=== PATIENT | female | born 1955 | race Caucasian/White ===

== ENCOUNTER → 2017-05-23 | Outpatient (CLI) | payer BC ==
[~2017-05-23] MED LIST: ACET-1138 PO; ASPEC325 PO; CONJ.6255 PO; ESOM20CA PO; FRRG PO; LEVO112T2 PO; OMEG10007 PO; RXC5 PO; SENN8.6T36 PO
--- NOTE | 2017-05-23 16:08 | MAMMOGRAPHY REPORT ---
BILATERAL DIGITAL SCREENING MAMMOGRAM TOMOSYNTHESIS WITH CAD: 05/23/2017 CLINICAL HISTORY: Routine screening. Patient has no complaints. TECHNIQUE: Breast tomosynthesis in addition to standard 2D mammography was performed. Current study was also evaluated with a Computer Aided Detection (CAD) system. COMPARISON: Comparison is made to exams dated: 01/27/2015 mammogram, 01/21/2014 mammogram, 01/21/2014 ma mmogram, 01/15/2013 mammogram, 01/17/2012 mammogram, and 01/10/2012 mammogram - [facility]. BREAST COMPOSITION: The tissue of both breasts is heterogeneously dense, which may obscure small mas ses. FINDINGS: No suspicious masses, calcifications, or areas of architectural distortion are noted in ei ther breast. There has been no significant interval change compared to prior exams. A biopsy marker clip is again noted in the left superior breast. IMPRESSION: ACR BI-RADS CATEGORY 2: BENIGN There is no mammographic evidence of malignancy. A 1 year screening mammogram is recommended. The pa tient will receive written notification of the results. Approximately 10% of breast cancers are not detected with mammography. A negative mammographic report should not delay biopsy if a clinically suggestive mass is present. Sarahi Rao M.D. /:05/23/2017 15:20:27 Grill Prep Cook: Nidia WALTON)(Estela)(BD), [facility] letter sent: Normal 1/2 BI-RADS Code: ACR BI-RADS Category 2: Benign
== END | disposition home or self-care (01) ==
LOC: C.MAMM 09:29
PROVIDERS: ATTEND Obstetrics & Gynecology
DX: Z12.31 Encounter for screening mammogram for malignant neoplasm of breast (principal)

== ENCOUNTER → 2017-06-12 | Outpatient (CLI) | payer BC | END | disposition home or self-care (01) | LOC: C.PAPS 15:10 | PROVIDERS: ATTEND Obstetrics & Gynecology | DX: Z01.419 Encounter for gynecological examination (general) (routine) without abnormal findings (principal) ==

== ENCOUNTER → 2017-09-12 | Outpatient (CLI) | payer BC ==
[2017-09-12 10:01] LABS: GLUCOSE,FASTING 95 mg/dl (70-99)
[2017-09-12 10:12] LABS: CHOLESTEROL 182 mg/dl (0-200); CHOLESTEROL/HDL RATIO 3.1; HDL CHOLESTEROL 58 mg/dl; TRIGLYCERIDES 140 mg/dl (0-150); VERY LOW DENSITY LIPOPROT CALC 28 mg/dl
== END | disposition home or self-care (01) ==
LOC: C.LAB 06:36
PROVIDERS: ATTEND Obstetrics & Gynecology
DX: Z00.00 Encounter for general adult medical examination without abnormal findings (principal)

== ENCOUNTER → 2017-10-04 | Outpatient (CLI) | payer BC | END | disposition home or self-care (01) | LOC: C.LAB 16:23 | PROVIDERS: ATTEND Obstetrics & Gynecology | DX: E03.9 Hypothyroidism, unspecified (principal); N95.0 Postmenopausal bleeding; R00.2 Palpitations ==

== ENCOUNTER → 2017-10-11 | Outpatient (CLI) | payer BC ==
[2017-10-11 13:20] LABS: BASO % 0.6 %; BASO ABS # 0.04 K/uL (0-0.2); COMPLETE YES; EOS % 1.9 %; HEMATOCRIT 39.6 % (37-47); IG% 0.1 %; LYMPH % 41.9 %; LYMPH ABS # 3.01 K/uL (1.2-3.4); MEAN CELL VOLUME 92.7 fL (80-100); MEAN CORPUSCULAR HEMOGLOBIN 30.2 pg (25-34); MEAN CORPUSCULAR HGB CONC 32.6 g/dl (32-36); MEAN PLATELET VOLUME 9.8 fL (7.4-10.4); MONO % 5.4 %; NEUT % 50.1 %; PLATELET COUNT 310 K/uL (130-400); RED BLOOD COUNT 4.27 M/uL (4.2-5.4); WHITE BLOOD COUNT 7.19 K/uL (4.8-10.8)
[2017-10-11 13:54] LABS: ESTIMATED AVERAGE GLUCOSE 117 mg/dl; HA1C FLAG Normal (Normal)
== END | disposition home or self-care (01) ==
LOC: C.LAB 12:08
PROVIDERS: ATTEND Obstetrics & Gynecology
DX: Z01.812 Encounter for preprocedural laboratory examination (principal); N95.0 Postmenopausal bleeding; R00.2 Palpitations; R73.03 Prediabetes

== ENCOUNTER 2019-03-28 06:25 | Inpatient (IN) ==
--- NOTE | 2019-03-06 16:09 | PAT Medication Instructions ---
Medication Instructions Date of Service March 06, 2019 Home Medications Plexus 1 pkg PO QAM esomeprazole magnesium 20 mg PO QAM ibuprofen 800 mg PO TID PRN levothyroxine 112 mcg PO QAM multivitamin 1 cap PO QAM omega 3-jaj-ayd-fish oil [Fish Oil] 1 cap PO QAM ASK your surgeon for instructions ibuprofen 800 mg PO TID PRN STOP taking 2 weeks before surgery (or as soon as possible if surgery is within 2 weeks) Plexus 1 pkg PO QAM omega 5-ssk-vwz-fish oil [Fish Oil] 1 cap PO QAM DO NOT take the morning of surgery multivitamin 1 cap PO QAM Take morning of surgery With a small sip of water, OTHERWISE NOTHING TO EAT OR DRINK AFTER MIDNIGHT: esomeprazole magnesium 20 mg PO QAM levothyroxine 112 mcg PO QAM Other Notes If you have any questions please call us at [phone] or [phone] or [phone] or [phone]
--- NOTE | 2019-03-07 10:43 | Anesthesiology Consultation ---
Date of Service March 07, 2019 Assessment & Plan (1) Encounter for pre-operative examination: - Right TKA= 10/16/16= SAB x1 at L3-L4; still able to feel knee manipulation --> LMA#4 (done under GA). Patient requests GA-- Discussed SAB vs. GA; advised patient that this will be discussed further AM DOS. Chart Review Chart Review: Acceptable Risk for Surgery and Patient seen in Pre Admission Testing Teaching & Discussion Pre-Anesthesia Teaching/Discussion Notes: Instructed NPO after midnight before surgery,except medications with 15 cc of water. Medication instructions provided according to the PAT guidelines. History Surgery Operation Date: 03/28/19 08:50 Proposed Procedures p Left Total Knee Replacement - Noah Longo MD Height/Weight Height: 5 ft 1 in Weight: 90.1 kg Allergies Allergy/AdvReac Type Severity Reaction Status Date / Time No Known Allergies Allergy Unknown Verified 03/05/19 07:44 Medications Home Medications Medication Instructions Recorded Confirmed Last Taken Plexus 1 pkg PO QAM 03/05/19 Unknown esomeprazole magnesium 20 mg PO QAM 03/05/19 03/05/19 Unknown ibuprofen 800 mg PO TID PRN 03/05/19 03/05/19 Unknown levothyroxine 112 mcg PO QAM 03/05/19 03/05/19 Unknown multivitamin 1 cap PO QAM 03/05/19 03/05/19 Unknown omega 8-ahe-fnh-fish oil [Fish Oil] 1 cap PO QAM 03/05/19 03/05/19 Unknown Past Medical History Medical History GERD (gastroesophageal reflux disease) CONTROLLED Hypothyroidism Obesity Osteoarthritis Past Surgical History Surgical History History of bilateral tubal ligation History of colonoscopy History of dilatation and curettage MULTIPLE History of laminectomy LUMBAR History of total knee replacement RIGHT KNEE TKA Past Anesthesia History No Family Hx of Anesthesia Complications and Other RIGHT KNEE TKA= 10/16/16= SAB X1 AT L3-L4; STILL ABLE TO FEEL KNEE MANIPULATION --> LMA#4 (DONE UNDER GA) History of PONV No Motion Sickness Screening History of Motion Sickness: Yes Social History Smoking Status: Former smoker Do You Dip or Chew Tobacco: No Smoking End Date: QUIT 2012; HX 1/2 PPD X 15 YEARS Hx Alcohol Use: No Hx Substance Use: No substance use type: does not use Exercise / Class Metabolic Activity II 4-5 Yardwork/Stairs/Walk up hill Review of Systems Patient denies chest pain, shortness of breath, dyspnea on exertion, cough, wheezing, palpitations. Physical Exam Vital Signs VITALS BP 131/84 P 70 TEMP 97.8 SP02 95%RA RESP 16 PHYSICAL Full neck and c-spine range of motion. Full TMJ range of motion. TMD 3 finger breaths Mallampati Score 1 Dentition: intact, crowns on sides/molars Lungs: clear throughout to auscultation Cardiac: regular rate and rhythm, no murmurs noted Spine: normal Carotid arteries: negative bruit Extremities: no edema Testing Electrocardiogram Date: 03/07/19 Findings: + NSR @ (71) Chest X-Ray Date: 03/07/19 Findings: + NAD Laboratory Results 03/07/19 11:11 03/07/19 11:11 Blood Type O Positive 03/07/19 11:11 Antibody Screen NEGATIVE 03/07/19 11:11 PT 9.8 Seconds (9.0-12.0) 03/07/19 11:11 INR 1.0 (0.9-1.1) 03/07/19 11:11 APTT 24.1 Seconds (21.0-31.0) 03/07/19 11:11
--- NOTE | 2019-03-07 12:10 | XRay Report ---
XR chest Pre-admission PA/Lat HISTORY: 63 years-old Female pat preoperative exam. No acute chest complaints COMPARISON: Chest radiographs 10/09/2016 TECHNIQUE: PA and lateral views of the chest FINDINGS: Cardiomediastinal and hilar silhouettes are within normal limits. No pneumothorax, pleural effusion, focal airspace consolidation or overt pulmonary edema. Bones of the chest appear grossly intact. IMPRESSION: No acute process. The above report was generated using voice recognition software. It may contain grammatical, syntax o r spelling errors. Electronically signed by: Govind Emerson M.D. 03/07/2019 12:09 PM
[2019-03-07 12:14] LABS: Basophils # (auto) 0.06 K/uL (0-0.2); Eosinophils # (auto) 0.12 K/uL (0-0.5); Eosinophils % (auto) 2.1 %; Hematocrit (blood only) 38.3 % (37-47); Hemoglobin 12.9 g/dL (12.0-16.0); Immature Granulocytes # (auto) 0.01 K/uL (0.00-0.02); Immature Granulocytes % (auto) 0.2 %; Lymphocytes # (auto) 2.28 K/uL (1.2-3.4); Lymphocytes % (auto) 39.4 %; Mean Corpuscular Hgb Conc 33.7 g/dL (32-36); Mean Corpuscular Volume 89.9 fL (80-100); Mean Platelet Volume 9.6 fL (7.4-10.4); Monocytes # (auto) 0.35 K/uL (0.11-0.59); Neutrophils # (auto) 2.97 K/uL (1.4-6.5); Neutrophils % (auto) 51.3 %; Platelet Count 292 K/uL (130-400); RDW Coefficient of Variation 13.3 % (11.5-14.5); RDW Standard Deviation 43.9 fL (36.4-46.3); Red Blood Count 4.26 M/uL (4.2-5.4); White Blood Count 5.79 K/uL (4.8-10.8)
[2019-03-07 12:26] LABS: BUN Creatinine Ratio 14.5 (10-20); C Reactive Protein 0.83 mg/dl (0-0.29); Calcium 9.3 mg/dl (8.5-10.1); Creatinine Clr Calc Pharmacy 72.7 ml/min; Est GFR (African American) 88.9; Est GFR (Non-African American) 76.7; Partial Thromboplastin Ratio 0.9; Partial Thromboplastin Time 24.1 Seconds (21.0-31.0); Potassium 4.2 mmol/L (3.5-5.1); Prothrombin Time 9.8 Seconds (9.0-12.0)
--- NOTE | 2019-03-21 09:36 | History and Physical Report ---
DATE OF ADMISSION: 03/28/2019 CHIEF COMPLAINT: Left knee pain. HISTORY OF PRESENT ILLNESS: This is a 63-year-old female well known to me from previous right knee replacement done back in September of 2016. She now presents for treatment of her left knee. She works as a nurse. She continues to be bothered by left knee pain and discomfort. She describes it has gotten worse over the years. Pain is mostly medial, but some global pain. The more she walks, the more it hurts. Her walking tolerance is a couple blocks at best. She has difficulty going up and down steps. The more she is up and on it, the more she limps. She has nighttime discomfort. She now would like to proceed with left knee replacement. PAST MEDICAL HISTORY: 1. Elevated cholesterol. 2. Hypothyroidism. 3. Gastroesophageal reflux disease. 4. Mild obesity with BMI of 38. PAST SURGICAL HISTORY: Previous surgeries include: 1. LTS. 2. Laminectomy. 3. D and C. 4. Right knee replaced done on 10/16/2016. ALLERGIES: None. CURRENT MEDICATIONS: 1. Levothyroxine. 2. Prilosec. 3. Fish oil. 4. Vitamins. SOCIAL HISTORY: A 63-year-old female. She works as a RN at [employer]. She does not smoke. FAMILY HISTORY: Noncontributory. REVIEW OF HISTORY: Negative for diabetes, neurologic problems, vascular problem, bleeding disorders. No chest pain or shortness of breath. No evidence of DVT or PE. No known bleeding problems. PHYSICAL EXAMINATION: GENERAL: Reveals a healthy, pleasant middle-aged female. Looks to be in excellent health. HEENT: Benign. NECK: Supple, no lymphadenopathy. LUNGS: Clear to auscultation. HEART: Has a regular rate and rhythm. ABDOMEN: Soft, nontender, nondistended. EXTREMITIES: Grossly neurovascularly intact except as follows: Examination of the left knee reveals the patient walks with a slight bit of a limp. She has got varus alignment to her knee. She is tender over the medial joint line. She has got bony hypertrophy medially. Small knee effusion. Range of motion about 5 degrees short of full extension and 125 degrees of flexion. There is no instability. She is neurologically intact. X-RAYS: X-rays of the left knee reviewed. Shows advanced medial compartment DJD. She has complete loss of medial joint space. She has osteophytes of the medial femoral condyle and medial tibial plateau. ASSESSMENT: A 63-year-old female status post right knee replacement over 2 years ago with advanced left knee degenerative joint disease. She has failed conservative treatment. She has done well on the right side and would like to have her left knee replaced. PLAN: We will take her to the operating room and do a left total knee replacement. The risks and benefits of this procedure were explained to the patient including but not limited to DVT, PE, , infection, neurological injury, vascular injury, bleeding problem, pain, limited range of motion, stiffness, failure to relieve her symptoms, incomplete relief of symptoms, need for further surgery in future, fracture, leg length inequality, nerve palsy, etc. The patient understands and desires to proceed. Informed consent was obtained. She is hoping to have a general anesthetic for unclear reasons. I think she had a spinal last time, was slow to set up and she ended up having a general anyhow. We will have her talk to the anesthesia about that. As far as discharge plans, she will likely be discharged to home with some home health.
[~2019-03-28 06:25] MED LIST changes: -ACET-1138 PO; +ACETAMINOPHEN 500 MG TAB PO SCH; -ASPEC325 PO; +BUPIVACAINE LIPOSOME/PF 266 MG, BUPIVACAINE/EPINEPHRINE 50 ML, SODIUM CHLORIDE 0.9% 30 ... INFIL SCH; +CEFAZOLIN 2000MG 2,000 MG/15 ML SYR IV SCH; -CONJ.6255 PO; -ESOM20CA PO; +FAMOTIDINE 20 MG TAB PO SCH; -FRRG PO; +GABAPENTIN 300 MG x 2 PO SCH; -LEVO112T2 PO; +LR 500ML BOLUS, THEN 15ML/HR IV SCH; +LR 60ML/HR IV SCH; +METOCLOPRAMIDE HCL 10 MG TABLET PO SCH; -OMEG10007 PO; -RXC5 PO; +SCOPOLAMINE 1.5 MG TDSY TD SCH; -SENN8.6T36 PO
--- OUTSIDE RECORDS SUMMARY | 2019-03-28 06:29 | External Medical Summary | Continuity of Care Document ---
:1955 Author Name Leif Lay, Provider Address Unavailable Unavailable , Care Team Providers Name Role Phone [email or web address] [place] [email or web address] PA-C Unavailable [email or web address] Shahbaz Stapleton M.D. Unavailable Unavailable Unavailable Unavailable Unavailable Problems Gastroesophageal reflux disease (530.81) (K21.9) Prediabetes (790.29) (R73.03) Hypothyroidism (244.9) (E03.9) Palpitations (785.1) (R00.2) Need for hepatitis C screening test (V73.89) (Z11.59) Achilles tendinitis of left lower extremity (726.71) (M76.62 ) Hyperlipidemia (272.4) (E78.5) Allergies and Adverse Reactions No Known Allergies (Allergy) Medications Levothyroxine Sodium 112 MCG Oral Tablet; Take 1 table t daily Rosanne Stapleton Start: 16-Feb-2019 Quantity: 90 Refills: 3 Prempro 0.625-2.5 MG Oral Tablet; TAKE 1 TABLET DAILY. Refills: 0 Fish Oil OIL Refills: 0 NexIUM 40 MG Oral Capsule Delayed Release; TAKE 1 CAPS ULE Daily ZACHARY Moreno Start: 02-Jul-2015 Quantity: 48 Refills: 0 Probiotic Oral Capsule; TAKE 1 CAPSULE Daily Start: 04-Apr-2017 Refills: 0 Mobic 15 MG Oral Tablet; take 1 tablet by mouth once daily Refills: 0 Procedures History of Laminectomy Lumbar Status: Co mpleted Immunizations Immunizations not documented Family History Mother Family history of diabetes mellitus (V18.0) (Z83.3) Status: Active Family history of Status: Active Father Family history of diabetes mellitus (V18.0) (Z83.3) Status: Active Family history of dementia (V17.2) (Z81.8) Status: Active Social History - Smoking Status Former smoker Plan of Treatment Planned Encounters Appointment; Shahbaz Stapleton M.D. Start: 14-May-2019 9:00 Re quest Planned Observations Planned Goals not documented Results X-Ray Chest Preadm Testing Laboratory: [facility] Diagnostic (Pending) Imaging [address] [facility] [place] 07-Mar-2019 12:08 X-Ray Chest Preadm Testing (CXRPRE) [facility] [place] [place] [phone] XRay Report Patient: JAY ESQUIVEL Admit Date: 03/07/19 MR#: [id number] Address1: [address] [place] [address] Acct ID:[id number] Address2: Date: 1955 [facility] Zip: [place] [address] Age: 63 Location: [facility]SU Sex: F Room/Bed: Att Phy: Noah Longo MD Diagnosis: Lef t Knee Degenerative Joint Disease; Left Knee Pa Aicha Phy: Shahbaz Stapleton MD Service Date: 11/13 [facility] Phy: Interpreting Phy: Shade Robin her Admit Phy: Ordering Phy: Noah Longo MD cc: XR chest Pre-admission PA/Lat HISTORY: 63 years-old Female pat preoperative exam. No acute chest complaints COMPARISON: Chest radiographs 10/09/2016 TECHNIQUE: PA and lateral views of the chest FINDINGS: Cardiomediastinal and hilar silhouettes are within normal limits. No pneumothorax, pleural effusion, focal airspace consolidation or overt pulmonary edema. Bones of the chest appear grossly intact. IMPRESSION: No acute process. The above report was generated using voice recognition software. It may contain grammatical, syntaxor spelling errors. Electronically signed by: Govind Emerson M.D. 03/07/2019 12:09 PM Dictated: 03/07/19 1208 Transcribed: 03/07/19 1208 CBC With DIFF (Pending) Laboratory: [facility] [address] [facility] [address] tel: 07-Mar-2019 11:11 WBC 5.79 K/uL Range: 4.8-10.8 K/u L RBC 4.26 {M/uL} Range: 4.2-5.4 M/uL HEMOGLOBIN 12.9 g/dL Range: 12.0-16.0 g /dL HEMATOCRIT 38.3 % Range: 37-47 % MCV 89.9 fL Range: 80-100 fL MCH 30.3 pg Range: 25-34 pg MEAN CORPUSCULAR HGB CONC 33.7 Range: 3 2-36 g/dL g/dL RED CELL DISTRIBUTION WIDTH SD Range: 3 6.4-46.3 fL 43.9 fL RED CELL DISTRIBUTION WIDTH CV Range: 1 1.5-14.5 % 13.3 % PLATELET COUNT 292 K/uL Range: 130-400 K/uL MEAN PLATELET VOLUME 9.6 fL Range: 7.4- 10.4 fL NEUT % 51.3 % Range: % LYMPH % 39.4 % Range: % MONO % 6.0 % Range: % EOS % 2.1 % Range: % BASO % 1.0 % Range: % IG% 0.2 % Range: % Comments: IG paramet er reflects the combination of Metas, Myelos andPromyelocytes. Neutrophils (Auto) 2.97 K/uL Range: 1. 4-6.5 K/uL LYMPH ABS # 2.28 K/uL Range: 1.2-3.4 K/ uL MONO ABS # 0.35 K/uL Range: 0.11-0.59 K /uL EOS ABS # 0.12 K/uL Range: 0-0.5 K/uL BASO ABS # 0.06 K/uL Range: 0-0.2 K/uL IG# 0.01 K/uL Range: 0.00-0.02 K/ uL PT/INR (Pending) Laboratory: [facility] Laboratory [address] [facility] [address] tel: 07-Mar-2019 11:11 Prothrombin Time 9.8 {Seconds} Range: 9 .0-12.0 Seconds INR 1.0 Range: 0.9-1.1 PTT (Pending) Laboratory: [facility] Laboratory [address] [facility] [address] [facility] [address] tel: 07-Mar-2019 11:11 PTT PATIENT 24.1 {Seconds} Range: 21.0- 31.0 Seconds Comments: Therapeuti c APTT range is 46.0 - 66.4 seconds PARTIAL THROMBOPLASTIN RATIO 0.9 Basic Metabolic Panel Laboratory: [facility] Laboratory (Pending) [address] [facility] [address] tel: 07-Mar-2019 11:11 SODIUM 137 mmol/L Range: 136-145 mmol /L POTASSIUM 4.2 mmol/L Range: 3.5-5.1 mmo l/L CHLORIDE 106 mmol/L Range: 98-107 mmol/ L CARBON DIOXIDE 27 mmol/L Range: 21-32 m mol/L ANION GAP 4.0 Range: 3-11 BLOOD UREA NITROGEN 12 mg/dl Range: 7-1 8 mg/dl CREATININE 0.82 mg/dl Range: 0.6-1.2 mg /dl Estimated Creatinine Clearance Range: m l/min 72.7 ml/min Comments: Est. Creat inine Clearance (Mod Cockcroft-Gault) for pharmacydosing purposes. Estimated GFR ( Comments: Units: ml/min per English) 88.9 1.73 meters squaredT he estimated GFR (CKD-E PI equation) has not be en validatedfor inpatie nt settings and may not be an accurate reflectiono f renal function in critical ly ill patients or those withrapidly changing renal function (e.g. PATRICA). Estimated GFR (Non- Comments: Uni ts: ml/min per English) 76.7 1.73 meters squaredT he estimated GFR (CKD-E PI equation) has not be en validatedfor inpatie nt settings and may not be an accurate reflectiono f renal function in critical ly ill patients or those withrapidly changing renal function (e.g. PATRICA). BUN/CREATININE RATIO 14.5 Range: 10-20 GLUCOSE 89 mg/dl Range: 70-99 mg/dl CALCIUM 9.3 mg/dl Range: 8.5-10.1 mg/ dl C-Reactive Protein Laboratory: [facility] Laboratory (Pending) [address] [facility] [address] tel: 07-Mar-2019 11:11 C-REACTIVE PROTEIN 0.83 mg/dl Range: 0- 0.29 mg/dl (above high threshold) Erythrocyte Sedimentation Laboratory: [facility] Laboratory Rate - ESR (Pending) [address] [facility] [address] tel: 07-Mar-2019 11:11 ERYTHROCYTE SEDIMENTATION RATE Range: 0 -21 mm/hr 39 {mm/hr} (above high threshold) Encounters Appointment; Shahbaz Stapleton M.D. 08-May-2018 14:30 Encounter Diagnosis: Problem not documented Appointment; Addis Moreno PA-C 08-Oct-2017 10:00 Encounter Diagnosis: Problem not documented Appointment; Wayne Welch DO 04-Apr-2017 15:00 Encounter Diagnosis: Problem not documented Appointment; Shahbaz Stapleton M.D. 14-May-2019 9:00 Encounter Diagnosis: Problem not documented
[2019-03-28] MEDS ORDERED: TRANEXAMIC ACID 1,000 MG **IV Intra-op IV SCH (06:30)
[2019-03-28] MEDS ORDERED: BUPIVACAINE 0.5 % 5 MG/1 ML PF 10ML VIAL ONE (06:33)
[2019-03-28] MEDS ORDERED: ROPIVACAINE 0.5% 5 MG/ML 30 ML VIAL ONE (06:34)
--- NOTE | 2019-03-28 06:45 | History & Physical Bridge Note ---
Date of Service March 28, 2019 History & Physical Bridge Note I have examined the patient, reviewed the History & Physical and in the interval since the performance of the History & Physical I have noted the following changes of clinical significance: no changes noted
[2019-03-28] MEDS ORDERED: ePHEDrine sulfate 50 MG/ML AMP IV PRN (07:14)
[2019-03-28] MEDS ORDERED: ONDANSETRON INJ 2 MG/ML 2 ML VIAL IV PRN ×2 (07:14→11:10)
[2019-03-28] MEDS ORDERED: ATROPINE SULFATE 0.1 MG/ML 10ML SYR IV PRN (07:14)
[2019-03-28] MEDS ORDERED: MIDAZOLAM HCL 1 MG/ML 2ML VIAL ONE (07:54)
[2019-03-28] MEDS ORDERED: PROPOFOL IV EMULSION 10 MG/ML 20 ML VIAL IV ONE (07:54)
[2019-03-28] MEDS ORDERED: LIDOCAINE HCL 2% 2 ML VIAL/AMP(20MG/ML) INFIL ONE (07:54)
[2019-03-28] MEDS ORDERED: ONDANSETRON INJ 2 MG/ML 2 ML VIAL ONE (08:20)
[2019-03-28] MEDS ORDERED: fentaNYL citrate 100 MCG/2 ML VIAL ONE ×2 (08:20→09:36)
[2019-03-28] MEDS ORDERED: BUPIVACAINE LIPOSOME 1.3% 266 MG/20 ML VIAL ONE (08:52)
[2019-03-28] MEDS ORDERED: SODIUM CHLORIDE 0.9% PF 50 ML VIAL ONE (08:52)
[2019-03-28] MEDS ORDERED: BACITRACIN INJ 50,000 UNIT VIAL ONE (08:53)
[2019-03-28] MEDS ORDERED: EPINEPHrine INJ 1 MG/ML AMP ONE (08:53)
[2019-03-28] MEDS ORDERED: BUPIVACAINE 0.25% 30 ML VIAL ONE (08:54)
[2019-03-28] MEDS ORDERED: HYDROmorphone INJ 2 MG/ML SYR/VIAL ONE (09:43)
--- NOTE | 2019-03-28 10:44 | Post Operative Brief Note ---
Immediate Post Op Note v1 Date of Surgery March 28, 2019 Pre & Post Diagnosis Operation Date: 03/28/19 08:50 Pre-Op Diagnosis: Left Knee Degenerative Joint Disease Post-Op Diagnosis: Left Knee Degenerative Joint Disease Procedure Operation Date: 03/28/19 08:50 Actual Procedures p Left Total Knee Arthroplasty(Left) - Noah Longo MD Surgeon Noah Longo MD Application Packager Saman, PAC Estimated Blood Loss 50 Findings Consistent with Post-Op Diagnosis Fluids 1400 cc Specimens Left Knee Drains Arana Catheter (16 Georgian Arana Catheter placed without difficulty by [facility] [place] Clear yellow urine obtained, Anesthesia to monitor output) Anesthesia Type General Regional Complications none Disposition Accompanied Patient To Recovery: No Disposition: Recovery Room
[2019-03-28] MEDS: fentaNYL citrate 100 MCG/2 ML VIAL IV PRN ×4 (11:00→11:15)
[2019-03-28] MEDS ORDERED: HYDROmorphone INJ 1 MG/ML SYRINGE ONE (11:01)
[2019-03-28] MEDS ORDERED: NALOXONE HCL 0.4 MG/1 ML VIAL/CARP IV PRN (11:10)
[2019-03-28] MEDS ORDERED: ALUMINUM/MAGNESIUM SUSP 30 ML UDC PO PRN (11:10)
[2019-03-28] MEDS ORDERED: METOCLOPRAMIDE HCL INJ 5 MG/ML 2 ML VIAL IV PRN (11:10)
[2019-03-28] MEDS ORDERED: BISACODYL 10 MG SUPP PR PRN (11:10)
[2019-03-28] MEDS ORDERED: MAGNESIUM HYDROXIDE SUSP 30 ML UDC PO PRN (11:10)
[2019-03-28] MEDS ORDERED: HYDROmorphone INJ 0.5 MG/0.5 ML SYR IV PRN (11:10)
[2019-03-28] MEDS: HYDROmorphone INJ 1 MG/ML SYRINGE IV PRN ×4 (11:20→11:35)
--- NOTE | 2019-03-28 11:30 | XRay Report ---
XR knee LT 2V routine CLINICAL HISTORY: Surgical Post Op COMPARISON: None. DISCUSSION: Anatomic alignment post total left knee arthroplasty. Good contact between prosthetic and underlying bone. Expected soft tissue postoperative change IMPRESSION: Anatomic alignment post total left knee arthroplasty. The above report was generated using voice recognition software. It may contain grammatical, syntax or spelling errors. Electronically signed by: Saji Gottlieb M.D. 03/28/2019 11:28 AM
--- NOTE | 2019-03-28 12:00 | Anesthesiology Progress Note ---
Date of Service March 28, 2019 Anesthesia Post Procedure Vital Signs Vital Signs: Temp Pulse Pulse Resp BP BP Pulse Ox 03/28/19 11:50 36.4 C L 79 18 113/76 95 03/28/19 11:40 87 18 135/74 94 03/28/19 11:30 86 18 133/74 95 03/28/19 11:20 89 18 138/70 96 03/28/19 11:10 87 18 139/86 97 03/28/19 11:00 86 18 151/78 H 99 03/28/19 10:50 36.8 C 88 18 123/65 95 03/28/19 06:49 36.8 C 73 18 160/91 H 96 Transfer of Care Handoff Completed per policy Notes Mental Status: alert / awake / arousable and participated in evaluation Patient Amnestic to Procedure: Yes Nausea / Vomiting: adequately controlled Pain: adequately controlled Airway Patency, RR, SpO2: stable & adequate BP & HR: stable & adequate Hydration State: stable & adequate Anesthetic Complications: no major complications apparent and Pt Satisfied with anesthetic care
--- NOTE | 2019-03-28 12:55 | Operative Report ---
DATE OF OPERATION: 03/28/2019 SURGEON: Noah Longo MD COMPUTER AIDED DESIGN TECHNICIAN: SHERICE Clements PREOPERATIVE DIAGNOSIS: Left knee degenerative joint disease. POSTOPERATIVE DIAGNOSIS: Left knee degenerative joint disease. PROCEDURE PERFORMED: Left cemented posterior stabilized total knee arthroplasty. COMPLICATIONS: None. ESTIMATED BLOOD LOSS: 50 mL. FLUID REPLACEMENT: 1400 mL of crystalloid fluid replacement. ANESTHESIA: General with adductor canal block. DRAINS: None. SPECIMENS: Left knee sent for pathology. TOURNIQUET TIME: 54 minutes at 300 mmHg. 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 She has gone through extensive conservative treatment in the past. She underwent a previous right knee replacement about 2-1/2 years ago. She has done well from this, but continued to be limited by left knee pain and discomfort that has gotten worse over time. She failed conservative care and elected to proceed with left total knee arthroplasty. OPERATIVE FINDINGS: Operative findings revealed advanced left knee DJD. She has extensive grade 4 changes in the medial compartment. She had some body grade 4 changes laterally as well as in the patellofemoral joint. She had a varus deformity to her knee with a moderate sized knee effusion. OPERATIVE IMPLANTS: Operative implants consisted of: 1. Biomet Vanguard size 60 left posterior stabilized femoral component. 2. A Biomet size 67 tibial tray. 3. A 10-mm posterior stabilized polyethylene insert. 4. A 25 x 8 all poly patella. OPERATIVE PROCEDURE: The patient was taken to the operating room, identified and placed on the operating able in supine position. All contact areas were appropriately padded. IV antibiotics were provided by anesthesia team. Just an adductor canal block was provided in the holding area. The patient refused a spinal and requested a general anesthetic. The patient was then brought to the OR and a general anesthetic was implemented by anesthesia team. A Arana catheter was placed in sterile fashion. A left thigh tourniquet was then placed and left lower extremity was then prepped and draped in usual sterile fashion. Left leg was elevated and exsanguinated with Esmarch and tourniquet was placed at 300 mmHg. An anterior approach to the left knee was then performed through a longitudinal incision centered over the patella. Sharp dissection was carried through subcutaneous tissue down to the level of the extensor mechanism. A medial parapatellar arthrotomy incision was made. Some subperiosteal dissection was carried out medially. The fat pad was resected from beneath the patellar tendon. Lateral patellofemoral ligament was released. The patella was everted and knee was flexed. The osteophytes were taken off the distal femur. The ACL and PCL were then released from the distal femur and the tibia subluxated anteriorly. External tibial alignment jig was then placed in the anterior face of the tibia and adjusted 14 mm medially. Proximal tibial cut was made to remove about a millimeter or two of bone from the most deficient aspect of the medial tibial plateau. The tibia was then sized to a size 67. Attention was then drawn to the femur. The distal femur was entered with a sharp drill bit. Intramedullary canal was suctioned. A left 5-degree valgus cutting guide was placed. Distal femoral cutting block was pinned in place. Distal femoral cut was made to take an additional 3 mm of bone off the distal femur. The femur was then sized to a size 60. I did downsize this almost an entire size. The AP cutting block was pinned parallel to the epicondylar axis, which was 5 degrees of external rotation. The anterior cut, anterior chamfer, posterior cut, posterior chamfer cuts were made. Box cutting guide was placed and adjusted slightly lateral and the box cut was made. The knee was flexed. The remnants of the medial and lateral menisci were excised. The osteophytes were taken off the posterior aspect of the femur. A trial femoral component was placed. Tibial tray was pinned in maximum external rotation and the drill and the stem punch were used to create a defect in the proximal tibia for the tibial tray. The knee was then trialed and a 10-mm insert fit most appropriately. Attention was then drawn to the patella. The patella was cleaned of all soft tissues. Patellar thickness measured 23 mm in thickness, was cut down to 14. It was sized to a size 25 patella. Lug holes were drilled for a 25 patella. Lateral osteophyte was removed. Patella button was placed. Knee was taken through range of motion and the patella tracked nicely with no thumbs test. Attention was then drawn toward placement of the permanent components. All trial components were removed. A bone plug was placed in the distal femur to limit blood loss. A double batch of Palacos G cement was mixed. A Biomet Vanguard size 60 left posterior stabilized femoral component, size 67 tibial tray, 10 mm posterior stabilized polyethylene insert, and a 25 x 8 all poly patella were then cemented in place. Knee was brought out into full extension until cement hardened. A final cement check was then performed. Pericapsular tissues were injected with a total of 100 mL of a combination of 20 mL of Exparel, 30 mL of normal saline, 50 mL of 0.25% Marcaine with epinephrine. The patient did receive 1 gram of tranexamic acid. The tourniquet was then let down for a final tourniquet time of 54 minutes. Hemostasis was assured using electrocautery. The extensor mechanism was then closed with a combination of #1 PDS suture and #1 Vicryl suture in a [id number] fashion. Extensor mechanism was checked and found to be intact. The subcutaneous tissue was then closed with #2 Dexon suture in buried interrupted fashion. The skin was closed with skin christi. Leg was then cleaned and dried and a sterile dressing with Xeroform, 4 x 4s, sterile cast padding, and Toi bandage were applied. The patient was then transferred to the recovery room in stable condition. The patient tolerated the procedure well with no complication. All needle and sponge counts were correct at the end of the operation. I attest to the content of the Intraoperative Record and any orders documented therein. Any exception s are noted below.
[2019-03-28] MEDS: ACETAMINOPHEN 500 MG TAB PO SCH ×2 (13:32→22:10)
[2019-03-28] MEDS: OXYCODONE HCL IR 5 MG TAB (IMMEDIATE RELEASE) PO PRN ×2 (15:02→21:03)
[2019-03-28] MEDS: CHECK SCOPOLAMINE PATCH PLACEMENT SCH (15:49)
[2019-03-28] MEDS: SODIUM CHLORIDE 0.9% 1000ML 1,000 ML IV SCH ×2 (16:40→22:42)
[2019-03-28] MEDS ORDERED: TRANEXAMIC ACID 1,000 MG in 0.9 % SODIUM CHLORIDE 100 ML IV SCH (16:45)
[2019-03-28] MEDS: FERROUS GLUCONATE 324 MG TAB PO SCH (17:59)
[2019-03-28] MEDS: ASCORBIC ACID 500 MG TAB PO SCH (17:59)
[2019-03-28] MEDS: KETOROLAC 30 MG/ML VIAL IV SCH (18:02)
[2019-03-28] MEDS: CEFAZOLIN 2000MG 2,000 MG/15 ML SYR IV SCH (18:05)
[2019-03-28] MEDS: SENNA 8.6 MG TAB PO SCH (21:02)
[2019-03-28] MEDS: DOCUSATE SODIUM 100 MG CAP PO SCH (21:02)
[2019-03-28] MEDS: ASPIRIN 81 MG ECTAB PO SCH (21:04)
[2019-03-28] MEDS: TAPENTADOL HCL ER 50 MG TABCR PO SCH (22:10)
[2019-03-29] MEDS: CHECK SCOPOLAMINE PATCH PLACEMENT SCH (00:38)
[2019-03-29] MEDS: KETOROLAC 30 MG/ML VIAL IV SCH ×4 (00:39→18:03)
[2019-03-29] MEDS: CEFAZOLIN 2000MG 2,000 MG/15 ML SYR IV SCH (02:18)
[2019-03-29] MEDS: OXYCODONE HCL IR 5 MG TAB (IMMEDIATE RELEASE) PO PRN ×3 (03:10→16:09)
[2019-03-29] MEDS: LEVOTHYROXINE SODIUM 112 MCG TABLET PO SCH (05:38)
[2019-03-29] MEDS: ACETAMINOPHEN 500 MG TAB PO SCH ×3 (06:18→22:14)
[2019-03-29 07:33] LABS: Hematocrit (blood only) 32.2 % (37-47); Hemoglobin 10.5 g/dL (12.0-16.0); Mean Corpuscular Hgb Conc 32.6 g/dL (32-36); Mean Corpuscular Volume 89.9 fL (80-100); Mean Platelet Volume 9.1 fL (7.4-10.4); Platelet Count 249 K/uL (130-400); RDW Standard Deviation 42.9 fL (36.4-46.3); Red Blood Count 3.58 M/uL (4.2-5.4); White Blood Count 9.26 K/uL (4.8-10.8)
[2019-03-29 08:05] LABS: BUN Creatinine Ratio 13.6 (10-20); Calcium 8.8 mg/dl (8.5-10.1); Creatinine Clr Calc Pharmacy 74.1 ml/min; Est GFR (African American) 92.3; Est GFR (Non-African American) 79.7; Potassium 4.4 mmol/L (3.5-5.1)
[2019-03-29] MEDS: FERROUS GLUCONATE 324 MG TAB PO SCH ×2 (08:31→16:09)
[2019-03-29] MEDS: DOCUSATE SODIUM 100 MG CAP PO SCH ×2 (08:31→20:58)
[2019-03-29] MEDS: ASCORBIC ACID 500 MG TAB PO SCH ×2 (08:31→16:09)
[2019-03-29] MEDS: OMEGA-3 (PURIFIED FISH OIL) 1 GM CAP PO SCH (08:32)
[2019-03-29] MEDS: ASPIRIN 81 MG ECTAB PO SCH ×2 (08:32→20:58)
[2019-03-29] MEDS: PANTOprazole 40 MG TAB PO SCH (08:32)
[2019-03-29] MEDS: TAPENTADOL HCL ER 50 MG TABCR PO SCH ×2 (08:32→20:58)
[2019-03-29] MEDS: MULTIVITAMIN TAB PO SCH (08:32)
--- NOTE | 2019-03-29 08:46 | Progress Note ---
DATE: 03/29/2019 SUBJECTIVE: A 64-year-old female postop day 1 from a left knee replacement. She is doing pretty well. Pain is controlled. No chest pain or shortness of breath. Had a pretty good night. OBJECTIVE: VITAL SIGNS: Temperature 36.7. Vital signs stable. GENERAL: Physical examination shows a pleasant, middle-aged female. She is sitting up in her bedside chair, looks comfortable. EXTREMITIES: Examination of the left leg reveals the dressing to be clean, dry and intact. She can dorsiflex and plantarflex her foot appropriately. She is neurologically intact. LABORATORY DATA: Hemoglobin 10.5, hematocrit 32.2. Electrolytes are stable. ASSESSMENT: A 64-year-old female postop day 1 from left knee replacement, doing pretty well. Pain is reasonably well controlled. She is neurologically intact. PLAN: 1. DVT prophylaxis including thigh-high TEDs, SCDs, and aspirin twice a day. 2. PT/OT. Weight bear as tolerated. Left total knee protocol. 3. Pain control, doing pretty well with current pain regimen. 4. Disposition: She is planning to be discharged to home with some home health once adequately recovered.
[2019-03-29] MEDS ORDERED: PLEXUS PO SCH (09:00)
[2019-03-29] MEDS ORDERED: NON-FORMULARY MEDICATION (Multivitamin 1 CAP) PO SCH (09:00)
--- NOTE | 2019-03-29 11:10 | Anesthesiology Progress Note ---
Date of Service March 29, 2019 Review of Systems Review of Systems: All systems reviewed & are unremarkable except as noted in HPI & below Physical Exam Vital Signs: Last Vital Signs Temp 36.7 C 03/29/19 07:05 Pulse 68 03/29/19 07:05 Resp 15 03/29/19 07:05 BP 123/80 03/29/19 07:05 Pulse Ox 94 03/29/19 07:05 Results & Data Medications Administered Acetaminophen (Tylenol) 1,000 mg PO Q8 [facility] Stop: 04/27/19 13:59 Last Admin: 03/29/19 06:18 Dose: 1,000 mg Documented by: [id number] Admin: 03/28/19 22:10 Dose: 1,000 mg Documented by: [id number] Admin: 03/28/19 13:32 Dose: 1,000 mg Documented by: [id number] Ascorbic Acid (Vitamin C) 500 mg PO BIDM [facility] Stop: 04/27/19 16:59 Last Admin: 03/29/19 08:31 Dose: 500 mg Documented by: [id number] Admin: 03/28/19 17:59 Dose: 500 mg Documented by: [id number] Aspirin (Ecotrin Ectab) 81 mg PO BID [facility] Stop: 04/27/19 20:59 Last Admin: 03/29/19 08:32 Dose: 81 mg Documented by: [id number] Admin: 03/28/19 21:04 Dose: 81 mg Documented by: [id number] Docusate Sodium (Colace) 100 mg PO BID [facility] Stop: 04/27/19 20:59 Last Admin: 03/29/19 08:31 Dose: 100 mg Documented by: [id number] Admin: 03/28/19 21:02 Dose: 100 mg Documented by: [id number] Ferrous Gluconate (Ferrous Gluconate) 324 mg PO BIDM [facility] Stop: 04/27/19 16:59 Last Admin: 03/29/19 08:31 Dose: 324 mg Documented by: [id number] Admin: 03/28/19 17:59 Dose: 324 mg Documented by: [id number] Fish Oil ([place]-3 (Purified Fish Oil)) 1 gm PO QAM [facility] Stop: 04/28/19 08:59 Last Admin: 03/29/19 08:32 Dose: 1 gm Documented by: [id number] Ketorolac Tromethamine (Toradol) 30 mg IV Q6H [facility] Stop: 03/30/19 12:01 Last Admin: 03/29/19 05:39 Dose: 30 mg Documented by: [id number] Admin: 03/29/19 00:39 Dose: 30 mg Documented by: [id number] Admin: 03/28/19 18:02 Dose: 30 mg Documented by: [id number] Levothyroxine Sodium (Synthroid) 112 mcg PO DAILYBB [facility] Stop: 04/28/19 06:29 Last Admin: 03/29/19 05:38 Dose: 112 mcg Documented by: [id number] Multivitamins (Multivitamin Tab) 1 tab PO QAM [facility] Stop: 04/28/19 08:59 Last Admin: 03/29/19 08:32 Dose: 1 tab Documented by: [id number] Oxycodone HCl (Roxicodone Immediate Rel) 5 - 10 mg PO Q6H PRN PRN Reason: Pain Stop: 04/11/19 11:09 Last Admin: 03/29/19 09:14 Dose: 10 mg Documented by: [id number] Admin: 03/29/19 03:10 Dose: 5 mg Documented by: [id number] Admin: 03/28/19 21:03 Dose: 5 mg Documented by: [id number] Admin: 03/28/19 15:02 Dose: 5 mg Documented by: [id number] Pantoprazole Sodium (Protonix) 40 mg PO DAILY [facility] Stop: 04/28/19 08:59 Last Admin: 03/29/19 08:32 Dose: 40 mg Documented by: [id number] Sennosides (Senokot) 17.2 mg PO HS [facility] Stop: 04/27/19 20:59 Last Admin: 03/28/19 21:02 Dose: 17.2 mg Documented by: [id number] Tapentadol (Nucynta Er) 50 mg PO Q12 [facility] Stop: 04/11/19 20:59 Last Admin: 03/29/19 08:32 Dose: 50 mg Documented by: [id number] Admin: 03/28/19 22:10 Dose: 50 mg Documented by: [id number]
[2019-03-29] MEDS: SENNA 8.6 MG TAB PO SCH (20:58)
[2019-03-29 23:40] VITALS: TEMP 97.9; O2SAT 92
[2019-03-30] MEDS: KETOROLAC 30 MG/ML VIAL IV SCH ×2 (00:01→06:00)
[2019-03-30] MEDS: OXYCODONE HCL IR 5 MG TAB (IMMEDIATE RELEASE) PO PRN ×2 (00:13→07:33)
[2019-03-30] MEDS: ACETAMINOPHEN 500 MG TAB PO SCH (06:00)
[2019-03-30] MEDS: LEVOTHYROXINE SODIUM 112 MCG TABLET PO SCH (06:29)
[2019-03-30 06:56] VITALS: BP 125/81; PULSE 67
[2019-03-30] MEDS: FERROUS GLUCONATE 324 MG TAB PO SCH (07:34)
[2019-03-30] MEDS: ASCORBIC ACID 500 MG TAB PO SCH (07:35)
[2019-03-30] MEDS: PANTOprazole 40 MG TAB PO SCH (07:35)
[2019-03-30] MEDS: MULTIVITAMIN TAB PO SCH (07:35)
[2019-03-30] MEDS: ASPIRIN 81 MG ECTAB PO SCH (07:35)
[2019-03-30] MEDS: OMEGA-3 (PURIFIED FISH OIL) 1 GM CAP PO SCH (07:36)
[2019-03-30] MEDS: DOCUSATE SODIUM 100 MG CAP PO SCH (07:36)
--- NOTE | 2019-03-30 08:28 | Progress Note ---
DATE: 03/30/2019 SUBJECTIVE: A 64-year-old female postop day 2 from a left knee replacement. She is doing better and says she is ready to go home. Pain is controlled. No chest pain or shortness of breath. Not feeling dizzy or lightheaded. OBJECTIVE: VITAL SIGNS: Temperature 36.6. Vital signs stable. PHYSICAL EXAMINATION: GENERAL: Reveals a pleasant, middle-aged female. She is sitting up in bed eating her breakfast and looks comfortable. EXTREMITIES: Examination of the left leg reveals the dressing to be clean, dry and intact. Calf is soft and supple. She is neurologically intact. ASSESSMENT: A 64-year-old female postoperative day 2 from a left knee replacement, doing well. Pain is controlled. She is neurologically intact. She is slightly anemic, but asymptomatic and on iron. PLAN: 1. DVT prophylaxis including thigh-high TEDs, SCDs, and aspirin twice a day. 2. PT/OT. Weight bear as tolerated. Left total knee protocol. 3. Pain control, doing well with current pain regimen. 4. Anemia, continue iron supplementation. 5. Disposition: Plan to discharge her home with some home health later today.
[2019-03-30] MEDS ORDERED: IBUPROFEN 800 MG TAB PO PRN (09:00)
[2019-03-30] MEDS: TAPENTADOL HCL ER 50 MG TABCR PO SCH (09:28)
--- NOTE | 2019-04-01 18:01 | Discharge Summary ---
ADMITTING PHYSICIAN AND SURGEON: Dr. Noah Longo. ADMITTING DIAGNOSIS: Left knee degenerative joint disease. SURGERY PERFORMED: Left total knee arthroplasty. SECONDARY DIAGNOSES: Elevated cholesterol, hypothyroidism, gastroesophageal reflux disease, mild obesity. CONSULTS: None obtained. HOSPITAL COURSE: The patient was admitted on 03/28/2019 and underwent total knee arthroplasty, tolerated the procedure well. There were no complications. She was transferred to the PACU postoperatively and later to the orthopedic for further care. She was given Ancef for antibiotic prophylaxis, STEWART stockings, SCDs and aspirin for DVT prophylaxis. Hemoglobin, hematocrit and vital signs were monitored during her hospital stay and remained stable. She did not require any blood transfusions. There were no complications. By postoperative day 2, she was tolerating a regular diet, pain was controlled with oral pain medicine. She was participating in physical therapy. On postoperative day 2, she was discharged home, set up with home health services. She was given printed discharge instructions including new prescriptions for extra strength Tylenol, aspirin, iron supplement, and oxycodone. Continue her home medications, continue physical therapy, weightbearing as tolerated, STEWART stockings. Follow up approximately 2 weeks postoperatively or sooner if there are any problems or concerns.
== END 2019-03-30 10:48 | disposition home health service (06) | DRG 470 ==
LOC: ASU 06:25 → 3E 11:10

== ENCOUNTER 2023-05-26 08:15 | Observation (INO) ==
[2023-05-26] MEDS ORDERED: MECLIZINE HCL 25 MG TAB PO STA (09:01)
[2023-05-26] MEDS ORDERED: LORazepam 2 MG/1 ML VIAL IV STA (09:01)
[2023-05-26] MEDS ORDERED: SODIUM CHLORIDE 0.9% 1000ML 1,000 ML IV ONE ×2 (09:01→11:34)
--- NOTE | 2023-05-26 09:07 | Emergency Department Note ---
Impression & Plan Vertigo, Intractable vomiting with nausea ED Provider Note Name: JAY ESQUIVEL Age: 68 Sex: F Arrives Via: Walk-In Informant: Patient ED Provider: David Francois MD Chief Complaint: Vomiting Impression: As per impressions above Medical Decision Making: Pleasant 68-year-old female who had been in the ER earlier this morning for evaluation of nausea and vomiting. Given fluids and Zofran with improvement and discharged however she was unable to tolerate getting to her car and returned to the ER. On examination patient has significant vertiginous symptoms with right horizontal nystagmus and some left horizontal nystagmus. She has an NIH of 0. She is mild associated headache as well. CT of the head fortunately is unremarkable. Laboratory work-up is unremarkable. She was given Ativan and meclizine with improvement of symptoms however she is still unable to sit up without significant vertiginous symptoms. Given her age no significant history of this happening and the fact she is already failed 1 attempt at discharge hospitalist was consulted for further management. No clear etiology of why she would have started getting at this point and I think a stroke work-up is reasonable however without other findings we will hold off on any anticoagulation at this time. Patient has no abdominal pain, distention nor complaints of significant abdominal issues thus we will hold off on any imaging of abdomen. Prior Medical Record and Triage/Nursing Notes reviewed by Me Differentials:Benign positional vertigo, dehydration, hypovolemia, anemia, tumor, infection, hypoglycemia, electrolyte abnormalities, cardiac sources, intracerebral event, toxicologic, neurologic, as well as other pathologies. Vital Signs: reviewed and remarkable for no significant abnormalities Interventions: Ativan 1 mg IV, meclizine 25 mg p.o. Labs:Reviewed and remarkable for no significant abnormalities Imaging:CT of the head without contrast reveals no intracranial hemorrhage or mass effect as per my informal interpretation. EKG:As per my interpretation. Indication vertiginous symptoms. Normal sinus rhythm at 60 bpm with a QTc of 450. When compared to an EKG of March 07, 2019 there is no significant change. Cardiac/Tele Monitoring: Cardiac Monitoring: An Order was placed for continuous cardiac monitoring. The monitor shows a rate of 60 with a normal sinus rhythm. Consults:Dr Jayde GOEL Hospitalist Plan: Disposition:Hospitalization. Condition: Good History of Present Illness:68-year-old female arrives for 3 days of nausea vomiting and spinning. Patient states she has never had any history of similar to this. Started after she got home from work. No inciting event that she is aware of. She was not doing any heavy lifting denies any falls, trauma, injuries. She states she feels a bit better if she just lays still for a few minutes but as soon as she starts moving she starts getting spinning and then severe nausea vomiting. Denies any specific abdominal pain, chest pain, back pain, urinary/bowel symptoms. She denies any diarrhea or blood in her stool. Patient does say that she is having bilateral temporal headaches. These seem to come and go and she states she is having one right now. She was seen in the ER earlier this morning. She was given Zofran and fluids and noted she was starting to feel better. She tried getting out to her car but was too dizzy and nauseous and then started vomiting on getting to the car. She returns for repea t evaluation. Past History:Hypothyroidism, hyperlipidemia, GERD Home Medications:Synthroid and omeprazole Allergies:No known drug allergy Vitals:Blood Pressure: 160/95, Pulse 68, RR 20, T 36.7C, O2 97% on RA Physical Exam: GENERAL: Patient is uncomfortable appearing and in mild distress. HEAD: AT/NC EYES: No scleral icterus, unremarkable pupils. ENT: Mucous membranes moist, no nasal congestion. Wax in right canal however able to see the top of right TM which is normal. Left TM is normal. RESPIRATORY: No dyspnea. Clear to auscultation and equal bilaterally. No wheeze, no rhonchi. CARDIOVASCULAR: Regular rate and rhythm.No murmurs, rubs, gallops appreciated. GASTROINTESTINAL: Abdomen soft, non-tender, no peritonitis.Bowel sounds positive.No masses appreciated. BACK: No midline tenderness, no CVA tenderness EXTREMITIES: Normal motion all extremities, no cyanosis, no edema. NEUROLOGIC: Alert and oriented, no acute motor or sensory deficits, no focal weakness, cranial nerves grossly intact. Patient does have strong right horizontal nystagmus and mild left horizontal nystagmus. No disconjugate gaze appreciated. No vertical or rotational nystagmus appreciated. SKIN: No rash, no jaundice, no diaphoresis. PSYCH: Appropriate GCS: 15 ED Course: Times/Reassessments: Patient is much improved with above medications however is still essentially unable to even sit up without return of symptoms. David Francois MD Past Med/Surg History Medical History (Updated 05/26/23 @ 16:36 by David Francois MD) Achilles tendinitis of left lower extremity Gastroesophageal reflux disease GERD (gastroesophageal reflux disease) CONTROLLED Hyperlipidemia Hypothyroidism Hypothyroidism Obesity Osteoarthritis Prediabetes Surgical History History of bilateral tubal ligation History of colonoscopy History of dilatation and curettage MULTIPLE History of knee replacement procedure of left knee History of lumbar laminectomy History of total knee replacement RIGHT KNEE TKA Family History Father Dementia Diabetes Mother Diabetes Denies family history of Ovarian cancer Prostate cancer Breast cancer Lung cancer Colorectal cancer Social History Smoking Status: Former smoker Tobacco Type: Cigarettes Second Hand Exposure: No; Do You Dip or Chew Tobacco: No; Hx Alcohol Use: Yes (socially) Hx Substance Use: No Preferred Language: Malagasy Communication Ability: Effective Visual Impairment: No Limitations Purchasing Assistant Required: No Beliefs That Will Affect Care: None marital status: Current Living Situation: Alone Current Living Situation Comment: home w/ Feels Safe at Home: Yes Safety Concerns: Feels Safe At This Time Assistive Devices: None Allergies Allergies Allergy/AdvReac Type Severity Reaction Status Date / Time No Known Allergies Allergy Unknown Verified 05/19/20 08:48 Home Meds Home Medications Medication Instructions Recorded Confirmed myfceluotn-tpvquxkpwlvr-dopynz 100 1 cap PO DAILY 05/13/19 05/26/23 mg-500 mg-50 mg capsule black cohosh 40 mg tablet 80 mg PO DAILY 05/14/19 05/26/23 omeprazole 20 mg capsule,delayed 20 mg PO DAILY 05/19/20 05/26/23 release Previous Rx's Medication Instructions Recorded levothyroxine 112 mcg tablet 112 mcg PO QAM #90 tabs 01/27/21 ondansetron 4 mg disintegrating 4 mg PO Q6H PRN nausea and 05/26/23 tablet vomiting #12 tabs Results & Data (ED) Vital Signs Vital Signs - 24 hr 05/26/23 08:24 05/26/23 09:48 05/26/23 10:00 Temperature 36.7 C Temperature Source Oral Pulse Rate 68 60 66 Pulse Rate from SpO2 Sensor 62 Respiratory Rate 20 15 Respiratory Effort / Characteristics Non-Labored Respiratory Depth Normal Blood Pressure 160/95 H 130/95 Blood Pressure Mean 116 106 Pulse Oximetry 97 91 Oxygen Delivery Method Room Air Sepsis Recent Fever Within 48 Hours No Sepsis New/Unexplained Change in Mental Status N/A Sepsis Action Taken by Nursing No Action Required Laboratory Data 05/26/23 09:22 05/26/23 09:22 Lab Results 05/26/23 05/26/23 05/26/23 Range/Units 09:22 09:22 09:22 WBC 7.68 (4.8-10.8) K/ul RBC 4.50 (4.20-5.40) M/uL Hgb 13.5 (12.0-16.0) g/dl Hct 40.2 (37.0-47.0) % MCV 89.3 (80.0-100.0) fL MCH 30.0 (25.0-34.0) pg MCHC 33.6 (32.0-36.0) g/dL RDW Std Deviation 43.1 (36.4-46.3) fL RDW Coeff of Cee 13.2 (11.5-14.5) % Plt Count 291 (130-400) K/uL MPV 10.0 (9.4-12.4) fL Immature Gran % (Auto) 0.4 % Neut % (Auto) 74.7 % Lymph % (Auto) 20.1 % [place] % (Auto) 4.0 % Eos % (Auto) 0.1 % Baso % (Auto) 0.7 % Neut # (Auto) 5.74 (1.40-6.50) K/uL Lymph # (Auto) 1.54 (1.2-3.4) K/uL [place] # (Auto) 0.31 (0.11-0.59) K/uL Eos # (Auto) 0.01 (0-0.50) K/uL Baso # (Auto) 0.05 (0-0.2) K/uL Immature Gran # (Auto) 0.03 (0.01-0.20) K/uL ESR 29 (0-30) mm/hr Sodium 141 (136-145) mmol/L Potassium 4.0 (3.5-5.1) mmol/L Chloride 108 H (98-107) mmol/L Carbon Dioxide 26 (21-32) mmol/L Anion Gap 7 (3-11) BUN 13 (6-23) mg/dl Creatinine 0.67 (0.6-1.2) mg/dl Est Cr Clr Drug Dosing Not Reportable Est GFR ( Amer) 105.4 ml/min Est GFR (Non-Af Amer) 91.0 ml/min BUN/Creatinine Ratio 19.4 (10-20) Glucose 130 H (70-99(Fasting)) mg/dl Calcium 8.8 (8.6-10.3) mg/dl Magnesium 2.1 (1.7-2.4) mg/dl SARS-CoV-2, RNA, NAAT (NEGATIVE) 05/26/23 Range/Units 09:22 WBC (4.8-10.8) K/ul RBC (4.20-5.40) M/uL Hgb (12.0-16.0) g/dl Hct (37.0-47.0) % MCV (80.0-100.0) fL MCH (25.0-34.0) pg MCHC (32.0-36.0) g/dL RDW Std Deviation (36.4-46.3) fL RDW Coeff of Cee (11.5-14.5) % Plt Count (130-400) K/uL MPV (9.4-12.4) fL Immature Gran % (Auto) % Neut % (Auto) % Lymph % (Auto) % [place] % (Auto) % Eos % (Auto) % Baso % (Auto) % Neut # (Auto) (1.40-6.50) K/uL Lymph # (Auto) (1.2-3.4) K/uL [place] # (Auto) (0.11-0.59) K/uL Eos # (Auto) (0-0.50) K/uL Baso # (Auto) (0-0.2) K/uL Immature Gran # (Auto) (0.01-0.20) K/uL ESR (0-30) mm/hr Sodium (136-145) mmol/L Potassium (3.5-5.1) mmol/L Chloride (98-107) mmol/L Carbon Dioxide (21-32) mmol/L Anion Gap (3-11) BUN (6-23) mg/dl Creatinine (0.6-1.2) mg/dl Est Cr Clr Drug Dosing Est GFR ( Amer) ml/min Est GFR (Non-Af Amer) ml/min BUN/Creatinine Ratio (10-20) Glucose (70-99(Fasting)) mg/dl Calcium (8.6-10.3) mg/dl Magnesium (1.7-2.4) mg/dl SARS-CoV-2, RNA, NAAT NEGATIVE (NEGATIVE) Administered Medications Discontinued Medications Acetaminophen (Acetaminophen 500 Mg Tab) 1,000 mg PO NOW STA Stop: 05/26/23 11:35 Last Admin: 05/26/23 12:51 Dose: 1,000 mg Documented By: KRISTIAN Sodium Chloride (Nss 1000ml) 1,000 mls @ 999 mls/hr IV .Q1H1M ONE Stop: 05/26/23 10:01 Last Infusion: 05/26/23 10:31 Dose: 0 mls/hr Documented By: Admin: 05/26/23 09:28 Dose: 999 mls/hr Documented By: SKIP Lorazepam (Lorazepam 2 Mg/1 Ml Vial) 1 mg IV NOW STA Stop: 05/26/23 09:02 Last Admin: 05/26/23 09:27 Dose: 1 mg Documented By: SKIP Meclizine HCl (Meclizine Hcl 25 Mg Tab) 25 mg PO NOW STA Stop: 05/26/23 09:02 Last Admin: 05/26/23 09:27 Dose: 25 mg Documented By: SKIP Pantoprazole Sodium (Pantoprazole 40 Mg Tab) 40 mg PO NOW STA Stop: 05/26/23 12:18 Last Admin: 05/26/23 12:50 Dose: 40 mg Documented By: KRISTIAN Imaging Data Radiologist's Impression: Head CT 05/26/23 09:[address] DOSE: 625.80 mGy.cm HISTORY: Vomiting. headache TECHNIQUE: Multiaxial CT images of the head were performed without the use of intravenous contrast. Automated exposure control was utilized for this study. A dose lowering technique was utilized adhering to the principles of ALARA. Comparison: None. Findings: The paranasal sinuses and mastoid air cells are clear. The calvarium and skull base are intact. The ventricles and sulci are within normal limits. There is no mass, hematoma, midline shift, or acute infarct. Impression: No acute intracranial abnormality. ACT 112: Negative or not required by law. Electronically signed by: Raza Bates M.D. 05/26/2023 9:44 AM Discharge Plan Visit Data Chief Complaint: Vomiting Stated Complaint: VOMITING ED Provider: David Francois Discharge Problem: Vertigo, Intractable vomiting with nausea Patient Disposition: Admitted As Inpatient Discharge Instructions Interventions: ED Discharge Assessment Last Done: 05/26/23 11:36
--- NOTE | 2023-05-26 09:46 | CT Scan Report ---
HEAD CT NONCONTRAST CT DOSE: 625.80 mGy.cm HISTORY: Vomiting. headache TECHNIQUE: Multiaxial CT images of the head were performed without the use of intravenous contrast. A utomated exposure control was utilized for this study. A dose lowering technique was utilized adheri ng to the principles of ALARA. Comparison: None. Findings: The paranasal sinuses and mastoid air cells are clear. The calvarium and skull base are int act. The ventricles and sulci are within normal limits. There is no mass, hematoma, midline shift, or acute infarct. Impression: No acute intracranial abnormality. ACT 112: Negative or not required by law. Electronically signed by: Raza Bates M.D. 05/26/2023 9:44 AM
[2023-05-26 09:57] LABS: Basophils # (auto) 0.05 K/uL (0-0.2); Basophils % (auto) 0.7 %; Eosinophils # (auto) 0.01 K/uL (0-0.50); Eosinophils % (auto) 0.1 %; Hematocrit (blood only) 40.2 % (37.0-47.0); Hemoglobin 13.5 g/dl (12.0-16.0); Immature Granulocytes # (auto) 0.03 K/uL (0.01-0.20); Immature Granulocytes % (auto) 0.4 %; Lymphocytes # (auto) 1.54 K/uL (1.2-3.4); Lymphocytes % (auto) 20.1 %; Mean Corpuscular Hgb Conc 33.6 g/dL (32.0-36.0); Mean Corpuscular Volume 89.3 fL (80.0-100.0); Monocytes # (auto) 0.31 K/uL (0.11-0.59); Neutrophils # (auto) 5.74 K/uL (1.40-6.50); Neutrophils % (auto) 74.7 %; Platelet Count 291 K/uL (130-400); RDW Coefficient of Variation 13.2 % (11.5-14.5); RDW Standard Deviation 43.1 fL (36.4-46.3); White Blood Count 7.68 K/ul (4.8-10.8)
[2023-05-26 09:58] LABS: Anion Gap 7 (3-11); BUN Creatinine Ratio 19.4 (10-20); Blood Urea Nitrogen 13 mg/dl (6-23); Calcium 8.8 mg/dl (8.6-10.3); Carbon Dioxide 26 mmol/L (21-32); Chloride 108 mmol/L (98-107); Est GFR (African American) 105.4 ml/min; Glucose 130 mg/dl (70-99(Fasting)); Magnesium 2.1 mg/dl (1.7-2.4); Sodium 141 mmol/L (136-145)
--- NOTE | 2023-05-26 10:28 | History & Physical Report ---
Date of Service May 26, 2023 Assessment & Plan (1) Vertigo: Plan: New onset. Some improvement with lorazepam and meclizine suggesting a peripheral cause but no prior history of BPPV and not intermittent, no tinnitus and no infective symptoms suggestive of acute vesticular neuritis. No history of migraines and current headache does not appear to be migrainous. In absence of good alternative explanation, lack of vertigo history and age > 60 will get brain MRI to assess for CVA. (2) Hypothyroidism: Plan: TSH 2.428 in June, Continue levothyroxine (3) Hyperlipidemia: Plan: Not on statin. LDL 106 in June 2022 (4) GERD (gastroesophageal reflux disease): Plan: Switch omeprazole to pantoprazole per hospital formulary Plan VTE Prophylaxis - low risk Diet - heart healthy Disposition - observation to med/tele Admission and Anticipated Discharge Date Admission Date: May 26, 2023 History of Present Illness Chief Complaint: Vertigo Primary Care Provider: BENITEZ Roth Sugey Clancy is a 68 year old female who presents to the ER with dizziness, nausea and vomiting. She was discharged earlier today but when she went out to the car she had another vomiting episode therefore came back to the ER. She reports symptoms started on after work and getting progressively worse. Worse on standing up but also having symptoms when turning her head while lying down. She feels her dizziness it more a room spinning sensation that lightheadedness as if she would pass out. She has no history of vertigo, BPPV or migraine. No recent history of nasal congestion, ear fullness, tinnitus, shortness of breath, cough, sinus pain, fever or chills. Regarding her nausea and vomiting she reports no associated dysphagia, odynophagia, abdominal pain, melena, hematochezia or change in bowels. No history of a stroke. Risk factors include prediabetes and former smoker. Quit smoking - 10 years ago, previously half a pack/day for 15 years. Allergies Allergy/AdvReac Type Severity Reaction Status Date / Time No Known Allergies Allergy Unknown Verified 05/19/20 08:48 Home Medications Medication Instructions Recorded Confirmed Type yerrolanxq-yangdagognpc-gjlvey 100 1 cap PO DAILY 05/13/19 05/26/23 History mg-500 mg-50 mg capsule black cohosh 40 mg tablet 80 mg PO DAILY 05/14/19 05/26/23 History omeprazole 20 mg capsule,delayed 20 mg PO DAILY 05/19/20 05/26/23 History release levothyroxine 112 mcg tablet 112 mcg PO QAM #90 tabs 01/27/21 05/26/23 Rx ondansetron 4 mg disintegrating 4 mg PO Q6H PRN nausea and 05/26/23 05/26/23 Rx tablet vomiting #12 tabs Past Med/Surg History Medical History Achilles tendinitis of left lower extremity Gastroesophageal reflux disease GERD (gastroesophageal reflux disease) CONTROLLED Hyperlipidemia Hypothyroidism Hypothyroidism Obesity Osteoarthritis Prediabetes Surgical History History of bilateral tubal ligation History of colonoscopy History of dilatation and curettage MULTIPLE History of knee replacement procedure of left knee History of lumbar laminectomy History of total knee replacement RIGHT KNEE TKA Family History Father Dementia Diabetes Mother Diabetes Denies family history of Ovarian cancer Prostate cancer Breast cancer Lung cancer Colorectal cancer Social History Smoking Status: Former smoker Tobacco Type: Cigarettes Second Hand Exposure: No; Do You Dip or Chew Tobacco: No; Hx Alcohol Use: Yes (socially) Hx Substance Use: No Preferred Language: Ethiopian Communication Ability: Effective Visual Impairment: No Limitations Silk Blocker Required: No Beliefs That Will Affect Care: None marital status: Current Living Situation: Alone Current Living Situation Comment: home w/ Feels Safe at Home: Yes Safety Concerns: Feels Safe At This Time Assistive Devices: None Review of Systems Review of Systems: All systems reviewed & are unremarkable except as noted in HPI & below Physical Exam Constitutional: WD/WN, vitals as above Eyes: PERRL, conjunctivae normal, anicteric sclerae ENMT: external ear and nose normal, oropharynx normal Respiratory: normal respiratory effort, lungs clear to auscultation Cardiovascular: RRR, no murmur, no edema Gastrointestinal (Abdomen): normal bowel sounds, soft, nontender, no hepatosplenomegaly Musculoskeletal: no cyanosis or clubbing, extremities motor strength 5/5 Skin: no rashes, warm and dry Neurologic: moves all extremities and awake; no focal motor deficits and not confused Speech / Cognition: + abnormal speech Motor/Sensory: no tremor and no pronator drift Cranial Nerves: PERRL, EOM intact bilaterally, normal facial strength, tongue midline, normal hearing, able to rotate head bilaterally, able to elevate shoulders bilaterally and symmetric palate elevation; + nystagmus Coordination: normal rfsjag-qz-wjvb test and normal bfga-sn-xfkn test right lateral gaze b/l horizontal nystagmus with branden beating to right Psychiatric: A+Ox3, euthymic affect Results & Data Results & Data Vital Signs (Past 12 Hours) Vital Signs Temp Pulse Resp BP Pulse Ox O2 Del Method 05/26/23 10:00 66 15 130/95 91 05/26/23 09:48 60 05/26/23 08:24 36.7 C 68 20 160/95 H 97 Room Air Laboratory Results Abnormal lab results 05/26/23 Range/Units 09:22 Chloride 108 H (98-107) mmol/L Glucose 130 H (70-99(Fasting)) mg/dl Diagnostic Findings HEAD CT NONCONTRAST CT DOSE: 625.80 mGy.cm HISTORY: Vomiting. headache TECHNIQUE: Multiaxial CT images of the head were performed without the use of intravenous contrast. Automated exposure control was utilized for this study. A dose lowering technique was utilized adhering to the principles of ALARA. Comparison: None. Findings: The paranasal sinuses and mastoid air cells are clear. The calvarium and skull base are intact. The ventricles and sulci are within normal limits. There is no mass, hematoma, midline shift, or acute infarct. Impression: No acute intracranial abnormality. Medications Administered ER Medications Given: Lorazepam 1mg IV Meclizine 25mg PO NSS 1L bolus ECG Rate (beats per minute): 60 Rhythm: normal sinus Findings: no acute ischemic change Comparison ECG Date: no prior available Code Status & VTE Plan Code Status Full VTE Prophylaxis Plan VTE Prophylaxis will be ordered: Yes PG Care Time/CCT Total # of Minutes Spent Total Time Spent with Patient: Total time spent is greater than 50% in coordination of care (as documented) at patient's floor/unit and/or counseling patient: Coding Level of Care Code 32461 INT INP/OBS CARE 3/75MIN Diagnoses Vertigo R42 Hypothyroidism E03.9 Hypothyroidism type: acquired Hyperlipidemia E78.5 Hyperlipidemia type: unspecified GERD (gastroesophageal reflux disease) K21.9 (2) Hypothyroidism Hypothyroidism type: acquired Qualified Code(s): E03.9 - Hypothyroidism, unspecified (3) Hyperlipidemia Hyperlipidemia type: unspecified Qualified Code(s): E78.5 - Hyperlipidemia, unspecified
[2023-05-26] MEDS ORDERED: ACETAMINOPHEN 500 MG TAB PO STA (11:34)
[2023-05-26] MEDS ORDERED: ACETAMINOPHEN 325 MG TAB PO PRN (12:17)
[2023-05-26] MEDS ORDERED: PANTOprazole 40 MG TAB PO STA (12:17)
[2023-05-26] MEDS ORDERED: MECLIZINE HCL 25 MG TAB PO PRN (12:17)
--- NOTE | 2023-05-26 12:34 | Magnetic Resonance Report ---
Brain MRI WITHOUT CONTRAST HISTORY: new onset vertigo TECHNIQUE: Multiplanar multisequence MRI of the brain was performed without the use of contrast. COMPARISON STUDY: Head CT 05/26/2023. FINDINGS: There is no mass, hematoma, midline shift, or acute infarct. The paranasal sinuses are maria isabel r. The mastoid air cells are clear. The ventricles and sulci are within normal limits for age. A few scattered foci of T2 hyperintensity seen within the periventricular and subcortical white matter are nonspecific but suggestive of mild microvascular ischemic changes. The major vascular flow voids at t he skull base are well-maintained. Prior bilateral lens replacement. IMPRESSION: No acute intracranial abnormality. A few scattered foci of T2 hyperintensity seen within the perivent ricular and subcortical white matter are nonspecific but favor mild microvascular ischemic change. ACT 112: Negative or not required by law. Electronically signed by: Raza Bates M.D. 05/26/2023 12:32 PM
[2023-05-26 13:20] LABS: Appearance Urine Clear (Clear); Bacteria Urine Automated Negative (Negative); Bilirubin Urine Negative (Negative); Blood Urine Negative (Negative); Color Urine Yellow; Epithelial Cell Urine Auto >30 /lpf (0-5); Glucose Urine UA Negative (Negative); Ketones Urine Trace (Negative); Leukocyte Esterase Urine 1+ (Negative); Nitrite Urine Negative (Negative); Protein Urine Negative (Negative); RBC Urine Automated 0-4 /hpf (0-4); Specific Gravity Urine 1.019 (1.000-1.030); Urobilinogen Urine Negative (Negative); pH Urine 6.5 (4.5-7.5)
[2023-05-26] MEDS: MECLIZINE HCL 25 MG TAB PO PRN (17:06)
[2023-05-27] MEDS ORDERED: LEVOTHYROXINE SODIUM 112 MCG TABLET PO SCH (06:30)
[2023-05-27 07:06] LABS: Basophils # (auto) 0.05 K/uL (0-0.2); Basophils % (auto) 0.8 %; Eosinophils # (auto) 0.06 K/uL (0-0.50); Eosinophils % (auto) 0.9 %; Hematocrit (blood only) 37.5 % (37.0-47.0); Hemoglobin 12.4 g/dl (12.0-16.0); Immature Granulocytes # (auto) 0.01 K/uL (0.01-0.20); Immature Granulocytes % (auto) 0.2 %; Lymphocytes # (auto) 2.26 K/uL (1.2-3.4); Lymphocytes % (auto) 35.6 %; Mean Corpuscular Hemoglobin 29.9 pg (25.0-34.0); Mean Corpuscular Hgb Conc 33.1 g/dL (32.0-36.0); Mean Corpuscular Volume 90.4 fL (80.0-100.0); Mean Platelet Volume 9.8 fL (9.4-12.4); Monocytes # (auto) 0.45 K/uL (0.11-0.59); Monocytes % (auto) 7.1 %; Neutrophils # (auto) 3.52 K/uL (1.40-6.50); Neutrophils % (auto) 55.4 %; Platelet Count 270 K/uL (130-400); RDW Coefficient of Variation 13.3 % (11.5-14.5); RDW Standard Deviation 43.8 fL (36.4-46.3); Red Blood Count 4.15 M/uL (4.20-5.40); White Blood Count 6.35 K/ul (4.8-10.8)
[2023-05-27 07:27] LABS: BUN Creatinine Ratio 15.9 (10-20); Calcium 8.6 mg/dl (8.6-10.3); Creatinine Clr Calc Pharmacy 80.8 ml/min; Est GFR (African American) 104.4 ml/min; Est GFR (Non-African American) 90.1 ml/min; Potassium 3.7 mmol/L (3.5-5.1)
[2023-05-27] MEDS ORDERED: PANTOprazole 40 MG TAB PO SCH (09:00)
[2023-05-27] MEDS: MECLIZINE HCL 25 MG TAB PO PRN (12:26)
--- NOTE | 2023-05-27 13:22 | Discharge Summary ---
Date of Service May 27, 2023 Admission HPI Per Admitting Provider Sugey Clancy is a 68 year old female who presents to the ER with dizziness, nausea and vomiting. She was discharged earlier today but when she went out to the car she had another vomiting episode therefore came back to the ER. She reports symptoms started on after work and getting progressively worse. Worse on standing up but also having symptoms when turning her head while lying down. She feels her dizziness it more a room spinning sensation that lightheadedness as if she would pass out. She has no history of vertigo, BPPV or migraine. No recent history of nasal congestion, ear fullness, tinnitus, shortness of breath, cough, sinus pain, fever or chills. Regarding her nausea and vomiting she reports no associated dysphagia, odynophagia, abdominal pain, melena, hematochezia or change in bowels. No history of a stroke. Risk factors include prediabetes and former smoker. Quit smoking - 10 years ago, previously half a pack/day for 15 years. Principal Diagnosis BPPV Discharge Exam The patient is awake, alert and oriented 3, well developed and well nourished, normocephalic and atraumatic, lying in bed and in no acute distress. HEENT--PERRL, EOMI, mucous membranes and oropharynx mildly dry Neck--supple. No JVD. No bruits. Thyroid normal, trachea midline, no adenopathy. Heart--normal S1 and S2. No murmurs, rubs or gallops. Lungs--clear bilaterally, no respiratory distress, no accessory muscle use. Abdomen--normal bowel sounds and soft. Mild epigastric and left sided abdominal pain Extremities--no cyanosis or clubbing. No edema. Dermatologic--normal skin turgor, normal color, no abnormal lymph nodes, no rash. Neurologic--cranial nerves II through XII grossly intact. Rheumatologic--normal range of motion. Psychiatric--normal affect. Discharge Data Allergies Allergy/AdvReac Type Severity Reaction Status Date / Time No Known Allergies Allergy Unknown Verified 05/19/20 08:48 Consultations 05/26/23 10:22 ED Decision to Admit Stat Ordered Studies 05/26/23 09:01 CT head/brain wo con Stat 05/26/23 11:29 MRI Brain [MR brain wo con] Stat Hospital Course (1) Vertigo: Most likely BPPV,New onset. Some improvement with lorazepam and meclizine suggesting a peripheral cause but no prior history of BPPV and not intermittent, no tinnitus and no infective symptoms suggestive of acute vesticular neuritis. No history of migraines and current headache does not appear to be migrainous. CT head and MRI brain did not show any acute pathology, although MRI shows some minor [id number] suggestive of non specific microvascular ischemic change Vertigo resolved upon evaluation in the am d/c home o n PRN meclizine (2) Hypothyroidism: TSH 2.428 in June, Continue levothyroxine (3) Hyperlipidemia: Not on statin. LDL 106 in June 2022 (4) GERD (gastroesophageal reflux disease): Switch omeprazole to pantoprazole per hospital formulary Plan VTE Prophylaxis - low risk Diet - heart healthy Disposition - observation to med/tele Total Time Total Time Spent Total Time Spent (In Minutes): 35 Discharge Plan Discharge Items Patient Disposition: Home - Self-Care Reason For Visit: VERTIGO Discharge Diagnosis: BPPV Activity: Resume your previous activity Non-emergency contact: Primary Care Provider Call non-emergency contact if: you have any medication questions Follow-up/Referrals: Magnolia Fernandez CRNP [Primary Care Provider] - Diet: Regular Addtl Attending Provider Instructions: please follow up with your regular PCP Pending Studies at Discharge: No Stand-Alone Forms: My [employer], Smoking Cessation Medications and DC Order Prescriptions: New meclizine 25 mg Tablet 25 mg PO Q6H PRN (Reason: dizziness) 5 Days Qty: 10 0RF Continued levothyroxine 112 mcg tablet 112 mcg PO QAM Qty: 90 3RF omeprazole 20 mg capsule,delayed release(DR/EC) 20 mg PO DAILY ondansetron 4 mg tablet,disintegrating 4 mg PO Q6H PRN (Reason: nausea and vomiting) Qty: 12 0RF Discontinued duttjcsnev-isxfqxnqkrmq-zchout 100-500-50 mg capsule 1 cap PO DAILY black cohosh 40 mg tablet 80 mg PO DAILY Discharge Orders: Discharge Order (Routine); Ordered 05/27/23 Ordered By: Chanelle Jiang Admission Data Admit Date/Time: 05/26/23 10:25 Attending Provider: Chanelle Jiang Admit Provider: Mal Donohue Primary Care Provider: Magnolia Fernandez Other Providers: Mal Donohue Other Interventions: Discharge Summary Assessment (RN) Last Done: 05/27/23 10:43 Coding Level of Care Code 83940 INP/OBS DISCH >30 MIN Diagnoses Vertigo R42 Hypothyroidism E03.9 Hypothyroidism type: acquired Hyperlipidemia E78.5 Hyperlipidemia type: unspecified GERD (gastroesophageal reflux disease) K21.9 Time Spent (min) 35
--- NOTE | 2023-05-28 06:04 | Electrocardiogram Report ---
Test Reason : Blood Pressure : / mmHG Vent. Rate : 060 BPM Atrial Rate : 060 BPM P-R Int : 140 ms QRS Dur : 090 ms QT Int : 450 ms P-R-T Axes : 067 -13 041 degrees QTc Int : 450 ms Normal sinus rhythm Normal ECG When compared with ECG of 07-MAR-2019 11:05, No significant change was found Confirmed by Trevin Bauman ([id number]) on 05/28/2023 6:04:11 AM Referred By: REFERRED SELF Confirmed By:Trevin Bauman
== END 2023-05-27 13:00 | disposition home or self-care (01) ==
LOC: ED 08:15 → 2N 08:15 → SUATTDRO 10:25 → 2N 11:36